=== PATIENT | male | born 1990 | race Caucasian/White ===

== ENCOUNTER 2022-05-16 10:02 | Emergency (ER) | payer BC ==
[~2022-05-16] VITALS: Ht 177.8 cm; Wt 92.0 kg
[2022-05-16] MEDS ORDERED: OLANZAPINE 10 MG/VIAL IM ONE (10:45)
[2022-05-16] MEDS ORDERED: LORAZEPAM 2MG/ML CPJ IM STA ×2 (10:51→11:12)
[2022-05-16] MEDS ORDERED: DIPHENHYDRAMINE 50MG/ML VIAL IM STA (11:12)
[2022-05-16 12:31] LABS: CHLORIDE 110 mEq/L (98-107)
[2022-05-16 12:34] LABS: CLARITY URINE CLEAR (CLEAR); COLOR URINE YELLOW (YELLOW); KETONES URINE NEGATIVE (NEGATIVE); LEUKOCYTE ESTERASE URINE NEGATIVE (NEGATIVE); NITRITE URINE NEGATIVE (NEGATIVE); OCCULT BLOOD URINE 2+ (NEGATIVE); PH URINE 5.5 (4.5-8.0); PROTEIN URINE 2+ (NEGATIVE); UROBILINOGEN URINE 0.2 E.U./dL (0.2-1.0)
[2022-05-16 12:42] LABS: ETHANOL BLOOD < 10 mg/dL
[2022-05-16 12:54] LABS: *AMPHETAMINES SCREEN URINE NEGATIVE (NEGATIVE); *BARBITURATES SCREEN URINE NEGATIVE (NEGATIVE); *BENZODIAZEPINES SCREEN URINE PRESUMTIVE POSITIVE (NEGATIVE); *COCAINE SCREEN URINE NEGATIVE (NEGATIVE); CANNABINOID URINE SCREEN PRESUMTIVE POSITIVE (NEGATIVE); METHADONE URINE SCREEN NEGATIVE (NEGATIVE); OPIATES URINE SCREEN NEGATIVE (NEGATIVE); PHENCYCLIDINE URINE SCREEN NEGATIVE (NEGATIVE)
[2022-05-16 15:33] LABS: BASOPHILS % 0.2 % (0.0-2.0); EOSINOPHILS % 0.1 % (0.0-5.0); HEMATOCRIT. 40.9 % (42.0-52.0); HEMOGLOBIN. 13.9 g/dL (14.0-18.0); LYMPHOCYTES % 10.7 % (20.0-50.0); MEAN CORPUSCULAR HEMOGLOBIN 30.2 pg (28.0-32.0); MEAN CORPUSCULAR VOLUME 88.6 fL (80.0-94.0); MEAN PLATELET VOLUME 7.6 fl (7.4-10.4); MONOCYTES % 9.9 % (2.0-8.0); NEUTROPHILS % 79.1 % (40.0-76.0); PLATELET 228 x1000/uL (130-400); RED BLOOD CELL COUNT 4.61 mill/uL (4.7-6.1); RED CELL DISTRIBUTION WIDTH 13.6 % (11.6-14.6)
[2022-05-16 16:00] VITALS: BP 91/63
== END 2022-05-16 19:30 | disposition home or self-care (01) ==
LOC: ER 10:46 → EDBD 10:46 → ER 19:30
DX: G93.40 Encephalopathy, unspecified (principal)
CPT/HCPCS: 36415; 70450; 80053; 80305; 80320; 81003; 85025; 96372; 99291; C1893; J1200; J2060; J3490; Z7610; G0480